=== PATIENT | male | born 1985 | race Caucasian/White ===

== ENCOUNTER 2024-09-01 15:36 | Emergency (ER) | payer MEDICAID ==
[~2024-09-01] VITALS: Ht 177.8 cm; Wt 90.9 kg
[2024-09-01 15:42] VITALS: BP 131/81; PULSE 95; RESP 18; TEMP 98.7; O2SAT 97
[2024-09-01] MEDS ORDERED: TRIA15CR61 TOP (15:57)
[2024-09-01] MEDS: dexamethasone sod phosphate 10mg/ml inj IM STA (16:01)
== END 2024-09-01 16:07 | disposition home or self-care (01) ==
LOC: ER 15:37
DX: L20.9 Atopic dermatitis, unspecified (principal); Z88.2 Allergy status to sulfonamides
CPT/HCPCS: 96372; 99283; J1100

== ENCOUNTER 2024-10-18 02:22 | Emergency (ER) | payer MEDICAID, OTHER ==
[~2024-10-18] VITALS: Ht 175.3 cm; Wt 81.9 kg
[2024-10-18 02:31] VITALS: BP 113/73; PULSE 98; RESP 19; O2SAT 95
--- NOTE | 2024-10-18 02:42 | Physician Documentation ---
History of Present Illness ~ Chief Complaint: Back Pain Stated Complaint: LOWER BACK PAIN Time Seen by MD: 02:35 Source: patient Mode of Arrival: POV Exam Limitations: no limitations HPI Chief Complaint: Back pain Caveat: None Independent Historians: None History of Present Illness: Patient is a healthy 38-year-old man who comes in complaining of mid and lower back pain that occurred earlier today when he had picked up a board and was moving it forward to set it down and he felt his back pull. Since then he has had severe pain in the mid lower back. Pain is constant and worse with any movements. Pain does radiate into his buttocks. No neurological symptoms. Patient walked here to the emergency department. Review of systems: All systems were reviewed and are negative except for what is indicated in the history of present illness. Past Medical History: None Past Surgical History: None Social History: Tobacco use, Vapes, denies other drug use Medications: Reviewed as documented Nursing Notes Allergies: Reviewed as documented in Nursing Notes Medication Reconciliation Allergies: Coded Allergies: Sulfa (Sulfonamide Antibiotics) (Unverified Allergy, Unknown, BREAK OUT, 10/18/24) Scheduled Ibuprofen (Ibuprofen), 1 TAB PO Q8H Scheduled PRN Hydrocodone Bit/Acetaminophen (Hydrocodon-Acetaminophn 10-325 tablet), 1 TAB PO TID PRN PRN for pain Orphenadrine Citrate (Norflex), 1 TAB PO Q12H PRN PRN for pain Review of Systems All Other Systems at this time: Reviewed and Negative ROS Patient denies any other acute symptoms other than above. All other systems are negative Physical Exam Physical Exam Vital Signs: RN Vital Signs have been reviewed: Yes, Source: Temporal, Heart Rate: 98, Respiratory Rate: 19, BP: 113/73, Pulse Oximetry: 95, Weight: 81.900 Pulse Oximetry Reflects: adequate oxygenation Physical Exam General Appearance: Moderate distress Neck: supple, normal ROM, trachea midline Pulmonary: No respiratory distress, CTA, BS equal Cardiac: RRR, no murmur, rub or gallop, Back: Hourly normal-appearing back, decreased range of motion of the back, paraspinal muscle tenderness in the lumbar region Extremities: normal ROM, no swelling, non-tender Skin: intact, dry, warm, no rashes Neuro: AAOx3, speech is clear, no focal motor weakness Psych: normal affect, good eye contact, no apparent hallucination, normal speech Progress Results/Orders Results/Orders Completed Orders - GLEN EISENBERG MD Ketorolac Trometh 15mg/Ml Vial (Toradol (10/18/24 02:40) Medications Received in ER Medications (Trade) Dose Ordered Sig/Lucy Route PRN Reason Start Time Stop Time Status Last Admin Dose Admin (Toradol injection) 15 mg ONCE ONCE IM 10/18/24 02:40 10/18/24 02:41 DC 10/18/24 02:49 15 MG Vital Signs 10/18/24 02:31 Pulse 98 Resp 19 B/P (MAP) 113/73 Pulse Ox 95 Medical Decision Making Findings Differential diagnosis includes but is not limited to: Lumbar strain, cauda equina syndrome, sciatica Emergency department course/medical decision-making: Patient presents with acute low back strain lumbar strain after moving a board work. Patient is given Toradol 15 mg IM. Patient will be given a prescription for ibuprofen 600 mg, [place] 10 mg and Norflex 100 mg. Patient does not require imaging. Patient is neurologically intact. Patient is stable for discharge. Departure Time of Disposition: 02:36 Disposition: 01 HOME / SELF CARE / HOMELESS Impression: Primary Impression: Strain of lumbar region Qualified Codes: S39.012A - Strain of muscle, fascia and tendon of lower back, initial encounter Condition: Stable Discharge Instructions: Lumbar Strain Additional Instructions: FOLLOW UP WITH YOUR PRIMARY CARE DOCTOR OR WORK COMP PHYSICIAN. NO DRIVING WHEN TAKING THE PAIN MEDICATIONS AND MUSCLE RELAXANTS PRESCRIBED. Prescriptions Ibuprofen (Ibuprofen) 600 Mg Tablet 1 TAB PO Q8H for pain for 10 Days, #30 TAB 0 Refills with food Prov: GLEN EISENBERG MD 10/18/24 Hydrocodone Bit/Acetaminophen (Hydrocodon-Acetaminophn 10-325 tablet) 10mg- 325mg Tablet 1 TAB PO TID PRN PRN for pain, #20 TAB Prov: GLEN EISENBERG MD 10/18/24 Orphenadrine Citrate (Norflex) 100 Mg Tablet.sa 1 TAB PO Q12H PRN PRN for pain for 15 Days, #30 TAB 0 Refills Prov: GLEN EISENBERG MD 10/18/24 Education Educated: Patient Educated regarding: diagnosis, treatment Signature Scribe Signature: No scribe Attestation: No scribe GLEN EISENBERG MD October 18, 2024 02:42
[2024-10-18] MEDS ORDERED: ORPH100T4 PO (02:44)
[2024-10-18] MEDS ORDERED: HYDR-3972 PO (02:44)
[2024-10-18] MEDS ORDERED: IBUP-1985 PO (02:44)
[2024-10-18] MEDS: ketorolac trometh 15mg/ml vial 15 MG/ML ML IM ONE (02:49)
== END 2024-10-18 02:50 | disposition home or self-care (01) ==
LOC: ER 02:23
DX: S39.012A Strain of muscle, fascia and tendon of lower back, initial encounter (principal); F17.290 Nicotine dependence, other tobacco product, uncomplicated; Z88.2 Allergy status to sulfonamides; X58.XXXA Exposure to other specified factors, initial encounter; Y93.89 Activity, other specified; Y92.89 Other specified places as the place of occurrence of the external cause; Y99.8 Other external cause status
CPT/HCPCS: 96372; 99283; J1885